=== PATIENT | male | born 1975 | race Caucasian/White ===

== ENCOUNTER 2018-11-18 01:29 | Emergency (ER) | payer MEDICAID ==
[~2018-11-18] VITALS: Ht 177.8 cm; Wt 81.4 kg
[2018-11-18 01:31] VITALS: BP 154/92
[2018-11-18] MEDS ORDERED: CLINDAMYCIN 300 MG CAPSULE ONE (02:11)
[2018-11-18] MEDS ORDERED: CLINDAMYCIN 300 MG CAPSULE PO ONE (02:30)
== END 2018-11-18 02:38 | disposition home or self-care (01) ==
LOC: ED 02:34
DX: K08.89 Other specified disorders of teeth and supporting structures (principal); F17.210 Nicotine dependence, cigarettes, uncomplicated
CPT/HCPCS: 99283

== ENCOUNTER 2020-09-17 00:49 | Emergency (ER) | payer SELFPAY ==
[~2020-09-17] VITALS: Ht 177.8 cm; Wt 85.9 kg
[2020-09-17] MEDS ORDERED: SODIUM CHLORIDE FLUSH 10ML SYR IVF ONE (01:00)
[2020-09-17 01:53] LABS: BASOPHILS % (AUTO) 1 % (0-1); EOSINOPHILS % (AUTO) 2 % (1-7); LYMPHOCYTES % (AUTO) 20 % (22-44); MEAN CORPUSCULAR HEMOGLOBIN 30.9 pg (27.5-34.5); MEAN CORPUSCULAR HGB CONC 34.7 g/dL (33.2-36.2); MEAN PLATELET VOLUME 7.3 fL (7.4-10.4); MONOCYTES % (AUTO) 9 % (2-9); NEUTROPHILS % (AUTO) 68 % (42-75); PLATELET COUNT 340 x10^3/uL (130-400); RED BLOOD COUNT 5.27 x10^6/uL (4.38-5.82); RED CELL DISTRIBUTION WIDTH 12.6 % (9.4-14.8)
[2020-09-17 01:55] LABS: MD NO
[2020-09-17 02:05] LABS: ALBUMIN 3.8 g/dL (3.4-5.0); ANION GAP 8 mmol/L (5-15); CALCIUM 8.5 mg/dL (8.5-10.1); CHLORIDE 105 mmol/L (98-107); CREATININE 0.94 mg/dL (0.7-1.3)
[2020-09-17 02:11] LABS: ALANINE AMINOTRANSFERASE 35 U/L (12-78); ALKALINE PHOSPHATASE 121 U/L (45-117); BILIRUBIN,TOTAL 0.3 mg/dL (0.2-1.0); TOTAL PROTEIN 7.9 g/dL (6.4-8.2)
--- NOTE | 2020-09-17 02:19 | NUR ---
PT TO ROOM FROM LOBBY
[2020-09-17] MEDS ORDERED: LIDOCAINE 1%, 10ML INFIL ONE (02:30)
[2020-09-17] MEDS ORDERED: LIDOCAINE-MPF 1%, 5ML ONE (02:34)
[2020-09-17] MEDS ORDERED: DIPH,PERTUSS(ACELL),TET VAC/PF 0.5 ML IM-VACC ONE ×2 (03:00→03:08)
[2020-09-17 03:11] VITALS: BP 105/59
--- NOTE | 2020-09-17 03:24 | NUR ---
PATIENT VERBALIZED POSSIBLE COMPLICATIONS RELATED TO VACCINE. PATIENT VERBALIZED UNDERSTANDING OF SIDE EFFECTS. PATIENT HAS MADE EDUCATIONED INFORMED DECISION TO LEAVE PRIOR TO THE 30 MIN ARTEI AFTER AN INJECTION HAS BEEN GIVEN. PATIENT VERBALIZED UNDERSTANDING OF SELF CARE AND FOLLOW UP CARE AT HOME. AMBULATORY TO DISCHARGE WITHOUT COMPLICATIONS WITH BELONGINGS.
== END 2020-09-17 03:26 | disposition home or self-care (01) ==
LOC: ED 03:00
DX: L02.511 Cutaneous abscess of right hand (principal); L03.113 Cellulitis of right upper limb
CPT/HCPCS: 10060; 36415; 73130; 80053; 85025; 90471; 90715; 99284; J3490